=== PATIENT | male | born 1980 | race Caucasian/White ===

== ENCOUNTER 2017-05-29 20:41 | Emergency (ER) | payer OTHER ==
[~2017-05-29] VITALS: Ht 190.5 cm; Wt 101.6 kg
[2017-05-29 22:21] LABS: HEMATOCRIT 48.5 % (42.0-52.0); HEMOGLOBIN 16.4 gm/dL (14.0-18.0); MCH 29.7 pg (26.0-34.0); MCHC 33.7 g/dL (28.0-37.0); MCV 87.9 fL (80.0-100.0); PLATELET COUNT 207 thou/uL (150-400); RBC 5.51 mil/uL (4.50-6.00); RDW 12.9 % (10.5-14.5); WBC 13.3 thou/uL (4.0-11.0)
[2017-05-29 22:23] LABS: MANUAL DIFF YES
[2017-05-29] MEDS ORDERED: LIORESAL 10 MG10 MG PO (22:34)
[2017-05-29 22:35] LABS: CALCIUM 9.7 mg/dL (8.5-10.1); CREATININE 0.7 mg/dL (0.7-1.3); POTASSIUM 5.4 mmol/L (3.5-5.1)
[2017-05-29] MEDS ORDERED: NORCO 5-325 TA1 EACH PO (22:35)
[2017-05-29 22:38] LABS: URIC ACID* 4.4 mg/dL (2.6-7.2)
[2017-05-29 22:45] LABS: ABSOLUTE NEUTROPHILS 11.6 thou/uL (1.4-8.2); TOTAL CELL COUNT 100
[2017-05-29 22:46] LABS: LARGE PLATELETS FEW
[2017-05-29] MEDS ORDERED: INDOMETHACIN 2525 MG PO (23:18)
[2017-05-29] MEDS ORDERED: ULTRAM 50MG TAB50 MG PO (23:18)
[2017-05-29] MEDS ORDERED: CLEOCIN HCL150 MG PO (23:18)
[2017-05-29 23:38] VITALS: BP 118/81
== END 2017-05-29 23:39 | disposition home or self-care (01) ==
LOC: ER 20:41
PROVIDERS: Emergency Medicine
DX: L03.116 Cellulitis of left lower limb (principal); F10.99 Alcohol use, unspecified with unspecified alcohol-induced disorder; Z87.891 Personal history of nicotine dependence